=== PATIENT | male | born 1980 | race Caucasian/White ===

== ENCOUNTER → 2021-01-07 16:18 | Outpatient (CLI) | payer OTHER, SELFPAY ==
[2021-01-07 16:53] LABS: COVID19 -Nasal RAPID Negative (Negative)
== END ==
PROVIDERS: Visit Provider Physician Assistant
DX: Z20.822 Contact with and (suspected) exposure to COVID-19 (principal)
CPT/HCPCS: 87635

== ENCOUNTER → 2021-01-08 08:29 | Outpatient (CLI) | payer OTHER, SELFPAY ==
--- NOTE | 2021-01-08 08:33 | DI.ECHO.S_ITS ---
[facility]---------+ [facility] +---------+ : : [address] : [address] [address] : : : : [id number] : : : : Phone: [phone]---------+ Echocardiogram Report + + :Name: RONALD MAYO Study Date: 01/08/2021 Height: 69 in : :[facility] ReadingLocation: Weight: 235 lb : : Gender: Male BSA: 2.2 m2 : :: 1980 Age: 40 yrs BP: 138/85 mmHg: :Reason For Study: CHEST PAIN : :Ordering Physician: JEREL, : :KELLEY Performed By: Susana Otreo : :Referring: KELLEY BELTRÁN : + + Interpretation Summary Normal left ventricle size with ejection fraction 60-65%. Borderline dilated left atrium. No significant valvular abnormality. Mildly enlarged ascending aorta. Procedure: A two-dimensional transthoracic echocardiogram with color flow and Doppler was performed. The study quality was technically adequate. There is no prior echocardiogram noted for this patient. The patient was in sinus rhythm with heart rates between 53-77 bpm during the exam. Left Ventricle: The left ventricle is normal in size and wall thickness. The ejection fraction is estimated to be 60-65%. There are no focal wall motion abnormalities. Diastolic parameters suggest probable normal left ventricular diastolic function and normal filling pressures. Right Ventricle: The right ventricle is normal in size and function. Atria: The left atrium is borderline dilated. Right atrial size is normal. There is no Doppler evidence for an interatrial shunt. Mitral Valve: The mitral valve is normal in structure and function. There is no mitral regurgitation noted. Aortic Valve: The aortic valve is not well visualized. The aortic valve opens well. There is no aortic valve stenosis. There is trace aortic regurgitation. Tricuspid Valve: The tricuspid valve is normal in structure and function. There is trace tricuspid regurgitation. Pulmonary artery pressures cannot be estimated because of the lack of a measurable TR jet velocity but the IVC suggests a CVP of around 8 mmHg. Pulmonic Valve: The pulmonic valve is not well visualized. There is no pulmonic valvular regurgitation. Great Vessels: The aortic root is normal size. The ascending aorta is mildly enlarged. The IVC is dilated (diameter is greater than 2.1 cm) yet it collapses greater than 50% with a sniff. This suggests a right atrial pressure of 8 mm Hg. Pericardium/ Pleura There is no pericardial effusion. There is no pleural effusion. MMode/2D Measurements & Calculations LVIDd: 5.7 cm LVOT diam: 2.5 cm LVIDs: 4.0 cm Ao root diam: 3.8 cm FS: 30.1 % asc Aorta Diam: 3.5 cm EPSS: 0.95 cm Ao Arch Diam (Prox Trans): 2.9 cm IVSd: 0.98 cm LVPWd: 1.0 cm LV ocampo. diameter/BSA (cm/m^2): 2.6 LV sys. diameter/BSA (cm/m^2): 1.8 LA A2 area: 22.3 cm2 RA long axis: 4.8 cm LA A4 area: 19.1 cm2 RA area: 16.0 cm2 LA length (vol): 4.8 cm RA vol: 44.9 ml LA vol: 75.0 ml RA : 20.3 ml/m2 LA vol index: 33.9 ml/m2 IVC diam: 2.1 cm RVD1 (basal): 3.8 cm TAPSE: 2.1 cm Doppler Measurements & Calculations Ao V2 max: 128.9 cm/sec LVOT Max Jed: 112.1 cm/sec Ao V2 mean: 86.6 cm/sec LV V1 max P.0 mmHg Ao max P.6 mmHg LV V1 VTI: 24.9 cm Ao mean P.5 mmHg LEONIE(I,D): 4.5 cm2 Ao V2 VTI: 27.7 cm LEONIE(V,D): 4.4 cm2 sev ratio: 0.90 LEONIE indexed to BSA (cm^2/m^2): 2.0 MV E max jed: 85.7 cm/sec PA V2 max: 101.6 cm/sec MV A max jed: 40.8 cm/sec PA V2 mean: 71.0 cm/sec MV E/A: 2.1 PA mean P.2 mmHg Med Peak E' Jed: 8.0 cm/sec PA pr(Accel): 17.3 mmHg E/E' med: 10.7 Lat Peak E' Jed: 14.2 cm/sec E/E' lat: 6.0 E/e' average: 8.4 MV dec time: 0.25 sec SV(LVOT): 125.3 ml Electronically signed by: Arash Ocampo on Reading Physician:01/09/2021 09:49 AM
--- NOTE | 2021-01-08 19:34 | DI.NM.S_ITS ---
DATE OF SERVICE: 01/08/2021 PROCEDURE PERFORMED: Exercise treadmill stress and rest myocardial perfusion imaging study with gating to assess ejection fraction and regional wall motion. ORDERING PROVIDER: Cecelia Collins PA-C. INDICATION: The patient is a 40-year-old male with arrhythmia with recent chest pain and palpitations. CARDIAC STRESS: The patient was able to exercise for 10 minutes 41 seconds on a standard Robert protocol, suggesting mildly impaired exercise capacity with an REE of +11%. He had a normal heart rate and blood pressure response to exercise, achieving a maximum heart rate of 159 BPM (89% of his predicted maximum). He had no chest discomfort or anginal symptom. His resting ECG shows sinus rhythm with normal ST segments. There were no significant ST-segment shifts or arrhythmias with exercise. At 10 minutes 1 second of exercise at a heart rate of 151 BPM, 25.2 millicuries of technetium-99m Myoview was injected and he was imaged 20 minutes later using a gated SPECT acquisition protocol. Earlier in the day while at rest, he had been injected with 11.5 mCi of technetium-99m Myoview and was imaged 30 minutes later, again using a gated SPECT acquisition protocol. FINDINGS: 1. Raw data: There is fairly good myocardial tracer uptake although evidence of lateral chest wall attenuation. Lung/heart ratio was normal at 0.23 with a normal TID ratio of 0.91. 2. Quantitated gated SPECT: Post-stress ejection fraction is estimated at 70% without any focal wall motion abnormality. The resting ejection fraction is calculated at 56%, although visually appears to be similar to that of the post-stress ejection fraction, again without any regional wall motion abnormality. Left ventricular volumes are mildly increased with a resting end-diastolic volume of 173 mL. 3. Myocardial perfusion imaging: Post-stress supine images show a slightly heterogeneous pattern of tracer activity, likely due to attenuation artifact. The prone images show a much more homogeneous, normal pattern of tracer uptake without any obvious perfusion defects. The resting images again have a fairly heterogeneous pattern, but there is no obvious evidence of improvement on the resting images. IMPRESSION: 1. Probable normal myocardial perfusion study. 2. No compelling evidence for any significant myocardial ischemia or previous myocardial infarction but with mildly decreased image quality. 3. Normal left ventricular systolic function with mildly increased left ventricular volumes. 4. Mildly impaired exercise capacity without angina or ECG evidence of ischemia. There were no arrhythmias. AtkinsChristopheron - Mae doc#: [id number]/job#: [id number] dd: 01/08/2021 16:53:00 dt: 01/08/2021 18:24:00 DICTATING MD/COPIES TO: Maxwell Patel MD; Cecelia Collins PA-C COPIES KELSY: LINDA; ; Cecelia Collins PA-C
== END ==
LOC: NUCM 08:31
PROVIDERS: PCP Physician Assistant; Referring Provider Physician Assistant; Visit Provider Physician Assistant
DX: R07.9 Chest pain, unspecified (principal)
CPT/HCPCS: 78452; 93017; 93306; A9502